=== PATIENT | male | born 1995 | race Caucasian/White ===

== ENCOUNTER 2016-11-28 21:29 | Emergency (ER) | payer MEDICAID ==
[~2016-11-28] VITALS: Ht 175.3 cm; Wt 105.1 kg
[2016-11-28 21:45] VITALS: BP 120/81
[2016-11-28] MEDS ORDERED: KETOROLAC 30 MG/1 ML IM ONE (22:30)
[2016-11-28] MEDS ORDERED: KETOROLAC 30 MG/1 ML ONE ×2 (22:32→22:35)
== END 2016-11-28 23:27 | disposition home or self-care (01) ==
LOC: ED 23:24
DX: S43.401A Unspecified sprain of right shoulder joint, initial encounter (principal); X58.XXXA Exposure to other specified factors, initial encounter; Y93.89 Activity, other specified; Y92.328 Other athletic field as the place of occurrence of the external cause; Y99.8 Other external cause status
CPT/HCPCS: 96372; 99283; J1885

== ENCOUNTER 2020-02-06 13:01 | Emergency (ER) | payer MEDICAID, OTHER ==
[~2020-02-06] VITALS: Ht 177.8 cm; Wt 116.3 kg
[2020-02-06 13:06] VITALS: BP 139/80
--- NOTE | 2020-02-06 13:52 | NUR ---
PT IN ROOM WITH EMPLOYER. PT COMFORTABLE AND RESTING CALMLY IN [facility] AT THIS TIME WITH CALL LIGHT WITHIN REACH. PT EDUCATED ON ER PROCESS AND VERBALIZES UNDERSTANDING. PT WORKMANS COMP PAPERS TO DR MORALES AT THIS TIME.
--- NOTE | 2020-02-06 15:23 | NUR ---
PT D/C W DC SUMMARY IN CARE OF TEST CONDUCTOR. PT DENIES ANY OTHER NEEDS AT THIS TIME PERTAINING TO THIS VISIT. PT VSS AND UPDATED IN EMR PRIOR TO PT D/C. PT AMBULATES TO REGISTRATION DESK WITH STEADY GAIT FOR D/C HOME.
== END 2020-02-06 15:29 ==
LOC: ED 13:29
DX: S00.83XA Contusion of other part of head, initial encounter (principal); M54.2 Cervicalgia; R11.10 Vomiting, unspecified; X58.XXXA Exposure to other specified factors, initial encounter; Y93.89 Activity, other specified; Y92.69 Other specified industrial and construction area as the place of occurrence of the external cause; Y99.8 Other external cause status
CPT/HCPCS: 70450; 99284